=== PATIENT | female | born 1995 | race Caucasian/White ===

== ENCOUNTER 2019-03-11 09:55 | Emergency (ER) | payer OTHER ==
[2019-03-11 10:38] LABS: ADD MAN DIFF? NO
[2019-03-11 10:40] LABS: BASOPHIL # 0.1 10^3/ul (0.0-0.1); BASOPHILS % 0.5 % (0.0-2.0); EOSINOPHILS % 0.3 % (0.0-7.0); HEMATOCRIT 45.4 % (37.0-47.0); HEMOGLOBIN 15.8 g/dl (12.0-16.0); LYMPHOCYTES # 1.9 10^3/ul (0.8-2.9); MEAN CORPUSCULAR HEMOGLOBIN 33.5 pg (29.0-33.0); MEAN CORPUSCULAR HGB CONC 34.8 g/dl (32.0-37.0); MEAN CORPUSCULAR VOLUME 96.2 fl (82.0-101.0); MEAN PLATELET VOLUME 10.4 fl (7.4-10.4); MONOCYTE # 0.7 10^3/ul (0.3-0.9); MONOCYTES % 7.5 % (0.0-11.0); NEUTROPHIL # 6.7 10^3/ul (1.6-7.5); NEUTROPHILS % 71.3 % (39.0-77.0); PLATELET COUNT 264 10^3/UL (140-415); RED BLOOD COUNT 4.72 10^6/ul (4.20-5.40)
[2019-03-11 10:40] LABS: WHITE BLOOD COUNT 9.5 10^3/ul (4.8-10.8)
[2019-03-11 10:42] LABS: URINE BLOOD (Dip) POC 3+ (NEGATIVE); URINE KETONES (Dip) POC 4+ (NEGATIVE); URINE LEUKOCYTE EST (Dip) POC Negative (NEGATIVE); URINE NITRITE (Dip) POC Positive (NEGATIVE); URINE TOTAL PROTEIN POC 2+ (NEGATIVE)
[2019-03-11] MEDS: HYDROmorphONE 1 MG/ML SYG IV (10:53)
[2019-03-11] MEDS: ONDANSETRON 4 MG INJ IV (10:53)
[2019-03-11] MEDS: SOD CHLORIDE 0.9% 1,000 ML IV (10:53)
[2019-03-11 11:01] LABS: ALANINE AMINOTRANSFERASE 92 IU/L (13-69); ALBUMIN 5.3 g/dl (3.3-4.9); ALBUMIN/GLOBULIN RATIO 1.26; ALKALINE PHOSPHATASE 108 IU/L (42-121); ANION GAP 19 (5-13); ASPARTATE AMINO TRANSFERASE 193 IU/L (15-46); BILIRUBIN,INDIRECT 1.9 mg/dl (0-1.1); BILIRUBIN,TOTAL 1.9 mg/dl (0.2-1.3); BLOOD UREA NITROGEN 9 mg/dl (7-20); CALCIUM 10.9 mg/dl (8.4-10.2); CARBON DIOXIDE 25 mmol/L (21-31); CHLORIDE 95 mmol/L (97-110); CREATININE 0.66 mg/dl (0.44-1.00); Estimated GFR > 60 mL/min (>60); GLUCOSE 116 mg/dl (70-220); POTASSIUM 3.2 mmol/L (3.5-5.1); SODIUM 139 mmol/L (135-144); TOTAL PROTEIN 9.5 g/dl (6.1-8.1)
[2019-03-11 11:34] LABS: LIPASE 6265 U/L (23-300)
== END 2019-03-11 12:30 | disposition left against medical advice (07) ==
LOC: E/R 09:55
DX: K85.20 Alcohol induced acute pancreatitis without necrosis or infection (principal)
CPT/HCPCS: 36415; 76705; 80053; 81003; 81025; 83690; 84703; 85025; 96361; 96374; 96375; 99285-25